=== PATIENT | female | born 1990 | race Native Hawaiian/Other Pacific Islander ===

== ENCOUNTER 2020-05-16 20:58 | Emergency (ER) | payer BC ==
[~2020-05-16] VITALS: Ht 162.6 cm; Wt 52.2 kg
[2020-05-16 21:31] VITALS: BP 100/78; TEMP 99
[2020-05-16 21:59] LABS: PLATELET COUNT 166 K/uL (152-353)
[2020-05-16 22:04] LABS: POTASSIUM 3.9 mmol/L (3.6-5.2)
== END 2020-05-17 01:08 | disposition home or self-care (01) ==
LOC: ED 20:58
DX: R10.13 Epigastric pain (principal); N83.8 Other noninflammatory disorders of ovary, fallopian tube and broad ligament
CPT/HCPCS: 80053; 81000; 85027; 96360; 96361; 96375; 99284; J2405; Q9963

== ENCOUNTER 2020-08-14 16:43 | Emergency (ER) | payer BC ==
[~2020-08-14] VITALS: Ht 162.6 cm; Wt 52.2 kg
[2020-08-14 16:55] VITALS: TEMP 97.3
[2020-08-14 17:39] VITALS: BP 118/74
== END 2020-08-14 17:40 | disposition home or self-care (01) ==
LOC: ED 16:43
DX: M79.18 Myalgia, other site (principal); V89.2XXA Person injured in unspecified motor-vehicle accident, traffic, initial encounter; Y92.89 Other specified places as the place of occurrence of the external cause
CPT/HCPCS: 96372; 99282; J1885

== ENCOUNTER 2020-08-25 18:01 | Emergency (ER) | payer BC ==
[~2020-08-25] VITALS: Ht 162.6 cm; Wt 52.2 kg
[2020-08-25 19:25] VITALS: BP 107/63; TEMP 99.3
== END 2020-08-25 19:25 | disposition home or self-care (01) ==
LOC: ED 18:01
DX: N30.80 Other cystitis without hematuria (principal)
CPT/HCPCS: 81000; 81025; 99283

== ENCOUNTER 2021-01-30 15:39 | Emergency (ER) | payer OTHER ==
[~2021-01-30] VITALS: Ht 162.6 cm; Wt 52.2 kg
[2021-01-30 15:50] VITALS: TEMP 97.8
[2021-01-30 16:19] LABS: PLATELET COUNT 235 K/uL (152-353)
[2021-01-30 16:23] LABS: POTASSIUM 4.1 mmol/L (3.6-5.2); SODIUM 138 mmol/L (136-145)
[2021-01-30 16:38] LABS: PARTIAL THROMBOPLASTIN TIME 23.6 SECONDS (24.5-33.6)
[2021-01-30 17:30] VITALS: BP 110/60
== END 2021-01-30 17:30 | disposition home or self-care (01) ==
LOC: ED 15:39
PROVIDERS: Hospitalist
DX: R07.89 Other chest pain (principal); E86.0 Dehydration
CPT/HCPCS: 36415; 80053; 80320; 81000; 81025; 82550; 84484; 85027; 85610; 85730; 93005; 96374; 99284; J2405

== ENCOUNTER 2021-03-18 11:25 | Outpatient (CLI) | payer OTHER | END 2021-03-18 22:25 | disposition home or self-care (01) | LOC: RAD 11:25 | PROVIDERS: ATTEND Nurse Practitioner Family | DX: J32.9 Chronic sinusitis, unspecified (principal); E03.9 Hypothyroidism, unspecified; F41.1 Generalized anxiety disorder; G47.00 Insomnia, unspecified; R07.9 Chest pain, unspecified; M54.2 Cervicalgia; H91.90 Unspecified hearing loss, unspecified ear | CPT/HCPCS: 93005 ==

== ENCOUNTER 2021-06-01 13:56 | Emergency (ER) | payer OTHER ==
[~2021-06-01] VITALS: Ht 162.6 cm; Wt 52.2 kg
[2021-06-01 14:13] VITALS: BP 102/66; TEMP 98.9
== END 2021-06-01 14:42 | disposition home or self-care (01) ==
LOC: ED 13:56
DX: G43.909 Migraine, unspecified, not intractable, without status migrainosus (principal)
CPT/HCPCS: 99281; J1200; J1885; J2405

== ENCOUNTER 2021-10-08 13:05 | Emergency (ER) | payer OTHER ==
[~2021-10-08] VITALS: Ht 162.6 cm; Wt 52.2 kg
[2021-10-08 13:15] VITALS: BP 124/89; TEMP 98.2
== END 2021-10-08 13:40 | disposition home or self-care (01) ==
LOC: ED 13:05
DX: G43.909 Migraine, unspecified, not intractable, without status migrainosus (principal)
CPT/HCPCS: 99282; J1200; J1885; J2405

== ENCOUNTER 2022-03-05 18:37 | Emergency (ER) | payer OTHER ==
[~2022-03-05] VITALS: Ht 162.6 cm; Wt 54.0 kg
[2022-03-05] MEDS ORDERED: CIPRO500 MG PO (19:30)
[2022-03-05] MEDS ORDERED: PREVACID30 M1 PO (19:34)
[2022-03-05 19:45] VITALS: BP 116/88; TEMP 98.7
== END 2022-03-05 19:45 | disposition home or self-care (01) ==
LOC: ED 18:37
DX: N39.0 Urinary tract infection, site not specified (principal)
CPT/HCPCS: 81002; 81015; 81025; 87077; 87086; 87088; 87186; 99282

== ENCOUNTER 2023-05-17 09:46 | Outpatient (CLI) | payer OTHER ==
[~2023-05-17 09:46] MED LIST: CIPRO500 MG PO; PREVACID30 M1 PO
== END 2023-05-17 19:05 | disposition home or self-care (01) ==
LOC: RAD 09:46
PROVIDERS: ATTEND Nurse Practitioner Family
DX: M54.12 Radiculopathy, cervical region (principal)